=== PATIENT | female | born 1990 | race Caucasian/White ===

== ENCOUNTER 2019-07-02 10:01 | Emergency (ER) | payer BC ==
[~2019-07-02] VITALS: Ht 154.9 cm; Wt 55.8 kg
[2019-07-02 10:05] VITALS: BP 110/83
[2019-07-02] MEDS ORDERED: SPIRONOLACTONE50 MG PO (10:12)
[2019-07-02] MEDS ORDERED: ZOLOFT50 M1 PO (10:12)
[2019-07-02] MEDS ORDERED: OCUFLOX5 ML OPHTHALMIC (11:30)
== END 2019-07-02 12:58 | disposition home or self-care (01) ==
LOC: ER 10:01
DX: S05.32XA Ocular laceration without prolapse or loss of intraocular tissue, left eye, initial encounter (principal); Z88.1 Allergy status to other antibiotic agents; W55.03XA Scratched by cat, initial encounter; Y93.89 Activity, other specified; Y92.89 Other specified places as the place of occurrence of the external cause; Y99.0 Civilian activity done for income or pay